=== PATIENT | female | born 1950 | race Caucasian/White ===

== ENCOUNTER 2021-06-10 14:51 | Emergency (ER) | payer MEDICARE, OTHER ==
[~2021-06-10] VITALS: Ht 162.6 cm; Wt 93.0 kg
--- NOTE | 2021-06-10 15:20 | NUR ---
BIS for c/o dizziness and headache s/p fall backward and hit head on the wall thursday, +LOC for 5 mins per patient, 11/19 ps. Respiration regular and unlabored. Denies N/V. WIll continue to monitor the patient.
--- NOTE | 2021-06-10 15:34 | NUR ---
DR HERNANDEZ AT THE BEDSIDE
[2021-06-10] MEDS ORDERED: PANT40TA49 PO (15:57)
[2021-06-10] MEDS ORDERED: FLUT1DIS3 INH (15:57)
[2021-06-10] MEDS ORDERED: VALS160T29 PO (15:57)
--- NOTE | 2021-06-10 16:00 | NUR ---
THE PATIENT IS TAKEN TO CT
--- NOTE | 2021-06-10 16:12 | NUR ---
THE PATIENT IS BACK FROM CT
[2021-06-10] MEDS ORDERED: AMOX500C2 PO (16:32)
[2021-06-10 17:18] VITALS: BP 143/97
--- NOTE | 2021-06-10 17:18 | NUR ---
Patient discharged to home in stable condition. Written and verbal after care instructions given. Patient verbalizes understanding of instruction.
== END 2021-06-10 17:19 | disposition home or self-care (01) ==
LOC: ER 14:56
DX: S06.0X0A Concussion without loss of consciousness, initial encounter (principal); J32.1 Chronic frontal sinusitis; J32.0 Chronic maxillary sinusitis; I10 Essential (primary) hypertension; J45.909 Unspecified asthma, uncomplicated; K21.9 Gastro-esophageal reflux disease without esophagitis; Z98.890 Other specified postprocedural states; Z88.8 Allergy status to other drugs, medicaments and biological substances; Z88.1 Allergy status to other antibiotic agents; Z79.899 Other long term (current) drug therapy; W07.XXXA Fall from chair, initial encounter; Y93.89 Activity, other specified; Y92.89 Other specified places as the place of occurrence of the external cause; Y99.8 Other external cause status
CPT/HCPCS: 70450-TC